=== PATIENT | male | born 1975 | race Two or more races ===

== ENCOUNTER 2019-04-28 08:36 | Outpatient (CLI) | payer OTHER ==
[2019-04-28] MEDS ORDERED: BUFFERED LIDOCAINE 10 ML SYRINGE ONE (08:42)
[2019-04-28] MEDS ORDERED: GADOBUTROL 10 MMOL/10 ML VIAL ONE (08:42)
[2019-04-28] MEDS ORDERED: IOTHALAMATE MEGLUMINE 50 ML VIAL ONE (08:42)
[2019-04-28] MEDS ORDERED: BUFFERED LIDOCAINE 10 ML SYRINGE IU ONE (10:17)
[2019-04-28] MEDS ORDERED: IOTHALAMATE MEGLUMINE 50 ML VIAL IVP ONE (10:17)
[2019-04-28] MEDS ORDERED: GADOBUTROL 10 MMOL/10 ML VIAL IVP ONE (10:17)
--- NOTE | 2019-04-28 10:48 | XRAY Report ---
Reason: PAIN IN RIGHT SHOULDER, THORACIC, THORACOLUMBAR AN Procedure Date: 04/28/2019 Accession Number: [id number] / [id number] Procedure: FL - Arthrogram Needle Placement CPT Code: Final Report FULL RESULT: EXAM: RIGHT SHOULDER ARTHROGRAPHIC INJECTION WITH FLUOROSCOPIC GUIDANCE EXAM DATE: 04/28/2019 10:16 AM. CLINICAL HISTORY: Pain in right shoulder, thoracic, thoracolumbar. COMPARISON: None. TECHNIQUE: The risks, benefits, and alternatives of the procedure were discussed with the patient. All questions were answered. Written and verbal consent were obtained. The glenohumeral joint was marked under fluoroscopy and prepped and draped in a sterile manner. Local anesthesia was performed with 1% lidocaine. A 22-gauge needle was then inserted into the glenohumeral joint. 10 mL of a solution containing 25% 1% lidocaine, 25% iodinated contrast, and a 1:200 dilution of gadolinium contrast in sterile saline was then injected. The needle was removed without immediate complication. Other: None. Fluoroscopy Time: 0.1 minutes. Number of Images: 6. FINDINGS: Bones and joints: No fracture or subluxation. Injection: Fluoroscopic images demonstrate needle placement and contrast in the glenohumeral joint. No contrast extravasation outside of the glenohumeral joint. IMPRESSION: Successful fluoroscopically guided arthrographic injection of the shoulder. RADIA
--- NOTE | 2019-04-28 10:56 | MRI Report ---
Reason: PAIN IN RIGHT SHOULDER, THORACIC, THORACOLUMBAR AN Procedure Date: 04/28/2019 Accession Number: [id number] / [id number] Procedure: MRI - Arthrogram Shoulder RT CPT Code: Final Report FULL RESULT: EXAM: RIGHT SHOULDER MRI ARTHROGRAM WITH CONTRAST EXAM DATE: 04/28/2019 10:19 AM. CLINICAL HISTORY: PAIN IN RIGHT SHOULDER, THORACIC, THORACOLUMBAR AN. COMPARISON: None. TECHNIQUE: Multiplanar, multisequence T1-weighted and fluid-sensitive sequences of the shoulder after an arthrographic injection of dilute gadolinium, dictated under a separate exam. Other: None. FINDINGS: Acromioclavicular Region: The acromion is type II. Widened acromioclavicular joint space (8 mm) probably reflect sequela of old grade II acromioclavicular joint separation. Minimal fluid in the subacromial/subdeltoid bursa consistent with very minimal bursitis. Glenohumeral Region: Mild glenohumeral synovitis is present. No loose bodies. Glenohumeral alignment is anatomic. The articular cartilage is unremarkable. The glenohumeral ligaments and joint capsule are unremarkable. Bone Marrow: No fracture, marrow edema or bone lesions. Labrum: There is a tear of the posterior-inferior quadrant of the labrum extending from the 9 o'clock position posteriorly to the 6 o'clock position inferiorly. The tear is associated with a few minuscule sarah-labral cysts along the inferior glenoid. No signs of neurologic impingement by these cysts. The remainder of the labrum is intact. Biceps Tendon: There is subtle medial subluxation of the long head biceps tendon from the top of the bicipital groove which is associated with a small partial thickness subscapularis tear which will be discussed further below. Findings are consistent with a low-grade sharron lesion. No associated long head biceps tendon tear. Musculature/Rotator Cuff: Diffuse partial thickness articular surface tearing of the mid to distal supraspinatus tendon involving the anterior approximately 75% of the tendon. The tear is highest in great anteriorly where the tear extends very nearly but not completely through the full thickness of the tendon. The infraspinatus is intact. The teres minor is intact. Small partial thickness articular surface tear of the distal and superior subscapularis at the lesser tuberosity insertion. No rotator cuff muscle belly atrophy or edema. Other: The subcutaneous tissues are unremarkable. IMPRESSION: 1. Diffuse partial thickness articular surface tear of the mid to distal supraspinatus involving the anterior approximately 75% of the tendon. At its maximal extent the tear extends very nearly but not completely through the full thickness of the tendon. 2. Small partial thickness articular surface tear of the distal and superior subscapularis at the lesser tuberosity insertion. This allows slight medial subluxation of the long head biceps tendon from the top of the bicipital groove reflecting a low-grade sharron lesion. No associated long head biceps tendon tear. 3. Tear of the posterior-inferior quadrant of the glenoid labrum. 4. Mild glenohumeral synovitis and minimal subacromial/subdeltoid bursitis. 5. Mild widening of the acromioclavicular joint probably sequela of remote grade II acromioclavicular joint separation. RADIA
--- NOTE | 2019-04-28 12:12 | MRI Report ---
Reason: PAIN IN RIGHT SHOULDER, THORACIC, THORACOLUMBAR AN Procedure Date: 04/28/2019 Accession Number: [id number] / [id number] Procedure: MRI - Lumbar Spine W/O CPT Code: Final Report FULL RESULT: EXAM: MRI LUMBAR SPINE WITHOUT CONTRAST EXAM DATE: 04/28/2019 10:52 AM. CLINICAL HISTORY: Low back pain with right-sided numbness. COMPARISON: None. TECHNIQUE: Multiplanar, multisequence T1-weighted and fluid-sensitive sequences of the lumbar spine from T12 to S1 without contrast. Other: None. FINDINGS: Lumbar alignment is anatomic. Vertebral body height is preserved. Marrow signal is normal. No fracture or bony lesion. The conus is normal in contour with the tip at the level of the L1-L2 disk. Axial images demonstrate the following: T12-L1: Minimal bilateral facet arthropathy. Normal intervertebral disk. No central or foraminal stenosis. L1-L2: Trace disk bulge. Minimal bilateral facet arthropathy. No central or foraminal stenosis. L2-L3: Trace disk bulge. Normal facet joints. No central or foraminal stenosis. L3-L4: Mild disk bulge with small posterior midline annular fissure. There is probably also a tiny right posterolateral disk extrusion immediately lateral to the right neural foramen though this is difficult to see definitively. The facet joints are normal. The potential right posterolateral extrusion approximates and appears to contact the right L3 nerve lateral to the foramen given the loss of the normal fat plane between the nerve and the posterolateral vertebral margin seen on the axial T1-weighted images (series 701 image 17). Correlation with right L3 radicular symptoms is suggested. Minimal bilateral foraminal stenosis is due to the disk bulge. No central stenosis. L4-L5: Mild diffuse disk bulge and minimal bilateral facet arthropathy lead to mild bilateral foraminal stenosis but no central stenosis. L5-S1: Mild diffuse disk bulge and minimal bilateral facet arthropathy lead to minimal bilateral foraminal stenosis but no central stenosis. IMPRESSION: 1. Questionable tiny disk extrusion along the right posterolateral aspect of the L3-L4 disk approximates and probably contacts the right L3 nerve. Correlation with symptoms of right L3 radiculopathy is suggested. There is also minimal bilateral foraminal stenosis at this level due to superimposed disk bulge. No central stenosis. 2. Mild bilateral foraminal stenosis but no central stenosis at L4-L5 due to mild diffuse disk bulge and minimal facet arthropathy. 3. Minimal bilateral foraminal stenosis but no central stenosis at L5-S1 due to mild diffuse disk bulge and minimal bilateral facet arthropathy. Comment: The following findings are so common in adults without low back pain that while we report their presence, they must be interpreted with caution and in the context of the clinical situation. (Reference Masonk et al, Spine 2001) Prevalence of findings in patients without low back pain: Disk degeneration (any evidence): 92% Disk desiccation/T2 signal loss: 83% Disk height loss: 56% Disk bulge: 64% Disk protrusion: 32% Annular tear/high intensity zone: 38% RADIA
== END 2019-04-28 08:37 | disposition home or self-care (01) ==
LOC: DI 08:36
PROVIDERS: ATTEND General Practice
DX: M75.111 Incomplete rotator cuff tear or rupture of right shoulder, not specified as traumatic (principal); S43.491A Other sprain of right shoulder joint, initial encounter; M75.51 Bursitis of right shoulder; M65.811 Other synovitis and tenosynovitis, right shoulder; M47.816 Spondylosis without myelopathy or radiculopathy, lumbar region; M48.061 Spinal stenosis, lumbar region without neurogenic claudication; M48.07 Spinal stenosis, lumbosacral region; M51.86 Other intervertebral disc disorders, lumbar region; M51.87 Other intervertebral disc disorders, lumbosacral region
CPT/HCPCS: 23350; 72148; 73222; 77002; A9585; Q9961

== ENCOUNTER 2021-08-30 10:55 | Outpatient (CLI) | payer OTHER ==
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
[2021-08-30 12:09] VITALS: BP 152/69
== END 2021-08-30 10:56 | disposition home or self-care (01) ==
LOC: SC 10:55
PROVIDERS: ATTEND Nurse Practitioner Family
DX: G47.33 Obstructive sleep apnea (adult) (pediatric) (principal)
CPT/HCPCS: 99203; 99212

== ENCOUNTER 2021-09-06 12:24 | Outpatient (CLI) | payer OTHER | END 2021-09-06 12:25 | disposition home or self-care (01) | LOC: SC 12:24 | PROVIDERS: ATTEND Nurse Practitioner Family | DX: R09.02 Hypoxemia (principal) | CPT/HCPCS: 95806 ==

== ENCOUNTER 2021-10-08 20:42 | Outpatient (CLI) | payer OTHER | END 2021-10-08 20:43 | disposition home or self-care (01) | LOC: SC 20:42 | PROVIDERS: ATTEND Nurse Practitioner Family | DX: G47.33 Obstructive sleep apnea (adult) (pediatric) (principal) | CPT/HCPCS: 95810 ==

== ENCOUNTER 2021-10-29 16:34 | Outpatient (CLI) | payer OTHER ==
--- NOTE | 2021-10-29 14:01 | SLEEP CARE CONSULTATION ---
Information from patient questionnaire entered by Morris Lira MA. I have reviewed and concur with the information entered by Morris Lira MA. This document represents the service I personally performed and the decisions made by Nanette jarrell Caren J, ARNP. History of Present Illness Service Date and Time: 10/29/2021 1340 Initial [place] Sleepiness Scale score: 11 Current [place] Sleepiness Scale score: 12 Additional HPI information: CHRISTINE SEBASTIAN returns for follow up and results of the recently performed polysomnography. The patient was informed of the following findings: No significant sleep disordered breathing with an average AHI of 1.6 and annamarie oxygen saturation of 85%. I explained the pathophysiology behind obstructive sleep apnea. Patient does not have sleep apnea and was advised how weight gain could increase the risk of developing sleep apnea in the future. I strongly encouraged the patient to lose weight. Patient has light snoring. Snoring can be reduced by weight loss. Weight loss is best achieved with diet consult. Patient instructed to contact PCP for referral. Snoring can also be treated with an oral appliance from a dentist. Advised to check insurance coverage. In addition, an ENT evaluation can be do to see if other treatment is indicated. Patient counseled not drink alcohol less than 4 hours before bedtime as it can increase snoring and apnea. Patient was cautioned about risks of drowsy driving until sleepiness symptoms resolve. Sleep Study - Results Type of Sleep Study: Polysomnography (F/U POLY STUDY, 10/08/2021 [facility], [place]) Prior sleep studies: Yes Year and Where: 2017 [facility] Polysomnography/Home Sleep Study results: IMPRESSION: The quality of the study is good. The patient had normal sleep efficiency. The sleep architecture was relatively normal as well considering the first night effect. Respiratory monitoring showed no significant sleep disordered breathing (AHI = 1.6) or hypoxia (annamarie oxygen saturation of 85%, and only 0.08% of the total sleep time was spent with oxygen saturation below 90%). The patient slept mostly supine (supine AHI = 2.1; non-supine = 0.77). No audible snore. There was no significant periodic leg movement of sleep. Cardiac rhythm was normal sinus rhythm without significant arrhythmia. No abnormal behavior (parasomnia) observed during the night. Allergies and Home Medications Home medication list reviewed: Yes (no changes) Review of Systems Review of systems same as previous: Yes (no changes) Physical Exam Vital signs obtained and entered by: CAROL ANN STEVENSON Height: 5 ft 10 in Weight: 205 lb (pt reported) Body Mass Index: 29.4 BMI Classification: Overweight Impression and Plan 1. Suspected Obstructive Sleep Apnea-Hypopnea Syndrome, as previously diagnosed and as suggested by a history of loud and irregular snoring, observed cessation of breath while asleep, gasping or choking in sleep, morning headache, frequent awakening during the night, unrefreshed sleep, cognitive impairment, and excessive daytime sleepiness. Patient completed a polysomnography in our sleep lab. He states he normally sleeps on his stomach but did not sleep prone for the test. He is not sure we are getting an accurate test since he is not sleeping as he normally would on his stomach. He states he did not sleep on his stomach with the last HST either. After some discussion, I think it would be good to have him sleep as he normally would on his stomach to see if he has positional obstructive sleep apnea (prone) and this is why his original sleep study showed moderate obstructive sleep apnea. I recommend proceeding to polysomnography to confirm the diagnosis and to assess severity. I obtained agreement to proceed. The pathophysiology of obstructive sleep apnea-hypopnea syndrome was discussed with the patient and health risks of cardiovascular and cerebrovascular disease if not treated. Risks of drowsy driving discussed in detail and patient advised to avoid long distance driving and to cotton puller at the first sign of drowsiness. Patient agreed to plan. * Schedule polysomnography * Avoid long distance driving or driving when feeling sleepy. * Avoid alcohol, sedative and muscle relaxant around bedtime. * Attempt to lose weight. * Review instructions provided by trained office staff on how to prepare for the sleep study. * Return for follow-up after sleep study completed. Counseling Topics: Sleeping position, Weight loss health impact Visit Type: Telehealth Video ([phone]) Video Type: Doximity Patient Location: Home Location of Provider: Office Patient agrees and consents to this telehealth visit type: Yes Patient agrees to have their insurance billed: Yes Time Spent with Patient (minutes): 15 Provider Statement: I spent 100% of the Telehealth Video Call with the patient with greater than 50% spent counseling the patient and coordination of care.
== END 2021-10-29 16:35 | disposition home or self-care (01) ==
LOC: SC 16:34
PROVIDERS: ATTEND Nurse Practitioner Family
DX: R06.83 Snoring (principal); G47.8 Other sleep disorders; R06.81 Apnea, not elsewhere classified; R51.9 Headache, unspecified; E66.3 Overweight; Z68.29 Body mass index [BMI] 29.0-29.9, adult

== ENCOUNTER 2021-11-12 14:04 | Outpatient (CLI) | payer OTHER | END 2021-11-12 14:05 | disposition home or self-care (01) | LOC: SC 14:04 | PROVIDERS: ATTEND Nurse Practitioner Family | DX: R06.83 Snoring (principal); R00.0 Tachycardia, unspecified; G47.8 Other sleep disorders; R51.9 Headache, unspecified | CPT/HCPCS: 95806; 95810 ==

== ENCOUNTER 2021-11-27 16:21 | Outpatient (CLI) | payer OTHER ==
--- NOTE | 2021-11-27 15:31 | SLEEP CARE CONSULTATION ---
Information from patient questionnaire entered by Morris Lira MA. I have reviewed and concur with the information entered by Morris Lira MA. This document represents the service I personally performed and the decisions made by Nanette jarrell Caren J, ARNP. History of Present Illness Service Date and Time: 11/27/2021 1500 Initial [place] Sleepiness Scale score: 11 Current [place] Sleepiness Scale score: 11 Additional HPI information: CHRISTINE SEBASTIAN returns via video telehealth visit for follow up and results of the recently performed home sleep study. The patient was informed of the following findings: No significant sleep disordered breathing with an average AHI of 3.2 and annamarie oxygen saturation of 88%. This test is suboptimal due to the length of study being less than 240 minutes. I explained the pathophysiology behind obstructive sleep apnea. Patient does not have sleep apnea and was advised how weight gain could increase the risk of developing sleep apnea in the future. I strongly encouraged the patient to lose weight. Patient has light snoring. Snoring can be reduced by weight loss. Weight loss is best achieved with diet consult. Patient counseled not drink alcohol less than 4 hours before bedtime as it can increase snoring and apnea. Patient was cautioned about risks of drowsy driving until sleepiness symptoms resolve. Sleep Study - Results Type of Sleep Study: Polysomnography (PRIOR SS 09/05/2017, [place], [place]. F/U HST, 11/13/2021 [facility], [place],) Prior sleep studies: Yes Year and Where: 2017 [facility] Polysomnography/Home Sleep Study results: Physician Impression: The quality of the study is good. The length of the study is not optimal (< 240 minutes). Please also see the tabulated and graphic data. 1. No significant sleep disordered breathing, with an AHI of 3.2/hr and annamarie SaO2 of 88%. During the study, the patient had 0 apneas (0 obstructive, 0 central, 0 mixed) and 8 hypopneas. The longest episode lasted 55.5 seconds. The few respiratory events occurred independently of body position (supine AHI was 2.4 and non-supine, 3.60). 2. Hypoxemia (ICD-10 R09.02), minimal, with the lowest oxygen saturation of 88 % and 0.4 minutes with SaO2 under 90%. Baseline oxygen saturation was normal (Average oxygen saturation was 93%). 3. Tachycardia, with maximum recorded heart rate of 195 beats per minute, most likely an artifact. Allergies and Home Medications Home medication list reviewed: Yes (no changes) Review of Systems Review of systems same as previous: Yes (no changes) Physical Exam Height: 5 ft 10 in Weight: 195 lb (pt reported) Body Mass Index: 27.9 BMI Classification: Overweight Impression and Plan Snoring but no significant sleep disordered breathing. This is his second HST completed that shows no significant sleep disordered breathing. It was subo ptimal on time but is consistent with last HST that did not show any sleep apnea. Patient initially tested positive for moderate obstructive sleep apnea 2 years ago in [place] with an AHI of 16.2. He did try to sleep normally this time, on his stomach to side, and we got similar results compared to his previous studies with us. Patient encouraged to come back if he should have no change in his symptoms or would like to discuss it further. He voiced understanding. Patient advised that often weight loss will reduce snoring as well as apnea risk. An oral appliance can also be used for snoring. This would require a dental consultation. Patient cautioned not to use other online appliances as can cause bite issues. A list of accredited dentists in [facility] and one local dentist who makes oral appliances is available in office. Patient is advised to check if insurance will cover. An ENT consult can also be helpful to determine if any other treatment is an option. * Attempt to lose weight * Avoid alcohol consumption near bedtime * The patient is cautioned about driving until sleepiness is completely resolved. * Return as needed for follow up. Counseling Topics: Weight loss health impact Visit Type: Telehealth Video ([phone]) Video Type: Doximity Patient Location: Work-car Location of Provider: Office Patient agrees and consents to this telehealth visit type: Yes Patient agrees to have their insurance billed: Yes Time Spent with Patient (minutes): 20 Provider Statement: I spent 100% of the Telehealth Video Call with the patient with greater than 50% spent counseling the patient and coordination of care.
== END 2021-11-27 16:22 | disposition home or self-care (01) ==
LOC: SC 16:21
PROVIDERS: ATTEND Nurse Practitioner Family
DX: R06.83 Snoring (principal); E66.3 Overweight; Z68.27 Body mass index [BMI] 27.0-27.9, adult